=== PATIENT | female | born 1950 | race Caucasian/White ===

== ENCOUNTER 2016-09-20 01:42 | Emergency (ER) | payer BC ==
[2016-09-20] MEDS ORDERED: HYDROmorphone 2 MG/ML Syringe SUBCUT ONE (01:59)
--- NOTE | 2016-09-20 02:14 | EDM.PDOC ---
ED HPI GENERAL MEDICAL PROBLEM - General Chief Complaint: General Stated Complaint: MIGRAINE Time Seen by Provider: 09/20/16 01:45 Source of Information: Reports: Patient History Limitations: Reports: No Limitations - History of Present Illness INITIAL COMMENTS - FREE TEXT/NARRATIVE: Pt claims that she has atypical migraine and tonight around 6 Pm she started having left sied headache with tunnel vision and nausea. The headache has got worse and throbbing type. Pt claims that she uses fentanyl patch 50mcg every 3 days to prevent the headache. She claims when gets it from Dr. Dobbs. She has runout of the patch for 1 wk now, as she has been using more frequently as the patches separate of her skin as she has been sweating due to hot weather. She says she was waiting to see Dr. Dobbs today, but then she had an attack of migraine today. Her blood pressure does go up when she has migraine headache. It has been as high as 210/110mmhg in the past today, it was 186/ 109mmhg. + photophobia and phonophobia. No weakness in the extremities, vomiting, vertigo, chest pain or shortness of breath. Onset: Today Onset Date: 09/19/16 Onset Time: 18:00 Location: Reports: Head Quality: Reports: Ache Severity: Severe Improves with: Reports: Medication, Rest Worsens with: Reports: None Associated Symptoms: Reports: Headaches. Denies: Confusion, Cough, Diaphoresis , Fever/Chills, Nausea/Vomiting, Rash, Seizure, Shortness of Breath, Syncope, Weakness - Related Data Allergies Allergy/AdvReac Type Severity Reaction Status Date / Time Xbjplhs-[id number]-Cqe Reductase AdvReac Muscle Verified 09/20/16 01:59 Inhibitor Aches Home Meds: Home Meds Cetirizine [ZyrTEC] 1 tab OP DAILY 10/26/15 [History] Cholecalciferol (Vitamin D3) [Vitamin D] 1 tab PO DAILY 10/26/15 [History] DULoxetine [Cymbalta] 2 cap PO DAILY 10/26/15 [History] Diclofenac Sodium [Voltaren 1% Gel] 2 applic TOP BID 10/26/15 [History] Estradiol 1 tab PO DAILY 10/26/15 [History] Levothyroxine Sodium [Synthroid] 150 mcg PO DAILY 10/26/15 [History] Metoprolol Succinate 1 tab PO DAILY 10/26/15 [History] Multivit-Min/FA/Lycopene/Lut [Senior Tabs] 1 tab PO DAILY 10/26/15 [History] [place]-3/DHA/Epa/Fish Oil [Fish Oil 1,000 mg Softgel] 1 cap PO DAILY 10/26/15 [ History] Valsartan [Diovan] 1.5 tab PO DAILY 10/26/15 [History] Vitamin B Complex 1 tab PO DAILY 10/26/15 [History] fentaNYL [Fentanyl] 50 mcg TRDERM ASDIRECTED 10/26/15 [History] traMADol [Ultram] 150 mg PO TID PRN 10/26/15 [History] Fenofibrate Nanocrystallized [Tricor] 145 mg PO DAILY 09/20/16 [History] Indapamide [Indapamide] 1 tab PO DAILY 09/20/16 [History] Past Medical History HEENT History: Reports: Other (See Below) Other HEENT History: pt currently is experiencing some difficulty swallowing and hoarse voice due to thyroid surgery 2 weeks ago Cardiovascular History: Reports: Hypertension Gastrointestinal History: Reports: Gastritis, GERD 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 (See Below) Other OB/BYN History: ovarian cyst rupture Musculoskeletal History: Reports: Fibromyalgia Neurological History: Reports: Migraines Psychiatric History: Reports: Depression Endocrine/Metabolic History: Reports: Hypothyroidism - Infectious Disease History Infectious Disease History: Reports: Other (See Below) Other Infectious Disease History: lyme's disease - Past Surgical History HEENT Surgical History: Reports: Other (See Below) Female Surgical History: Reports: Hysterectomy, Lithotripsy/ESWL, Other (See Below) Social & Family History - Family History Family Medical History: Noncontributory - Tobacco Use Smoking Status *Q: Never Smoker Second Hand Smoke Exposure: No - Caffeine Use Caffeine Use: Reports: None - Recreational Drug Use Recreational Drug Use: No ED ROS GENERAL - Review of Systems Review Of Systems: See Below Constitutional: Denies: Fever, Chills HEENT: Denies: Nose Pain, Rhinitis, Throat Pain, Throat Swelling Respiratory: Denies: Cough, Sputum Cardiovascular: Denies: Chest Pain, Lightheadedness GI/Abdominal: Reports: Nausea. Denies: Abdominal Pain, Vomiting : Denies: Dysuria, Flank Pain Musculoskeletal: Denies: Joint Pain, Joint Swelling Skin: Denies: Pruritis, Rash Neurological: Reports: Headache. Denies: Confusion, Dizziness, Numbness, Paresthesia, Seizure, Syncope, Tingling, Tremors, Gait Disturbance Psychiatric: Denies: Agitation, Anxiety ED EXAM, GENERAL - Physical Exam Exam: See Below Exam Limited By: No Limitations General Appearance: Alert, WD/WN, Mild Distress, Other (sitting in darkroom) Eye Exam: Bilateral Eye: EOMI, PERRL Ears: Normal External Exam, Normal Canal, Hearing Grossly Normal, Normal TMs Ear Exam: Bilateral Ear: Auricle Normal, Canal Normal, TM normal Nose: Normal Inspection, Normal Mucosa, No Blood Throat/Mouth: Normal Inspection, Normal Lips, Normal Teeth, Normal Gums, Normal Oropharynx, Normal Voice, No Airway Compromise Head: Atraumatic, Normocephalic Neck: Normal Inspection, Supple, Non-Tender, Full Range of Motion Respiratory/Chest: No Respiratory Distress, Lungs Clear, Normal Breath Sounds, No Accessory Muscle Use, Chest Non-Tender Cardiovascular: Normal Peripheral Pulses, Regular Rate, Rhythm, No Edema, No Gallop, No JVD, No Murmur, No Rub Extremities: Normal Inspection, Normal Range of Motion, Non-Tender, Normal Capillary Refill, No Pedal Edema Neurological: Alert, Oriented, CN II-XII Intact, Normal Cognition, Normal Gait, Normal Reflexes, No Motor/Sensory Deficits Psychiatric: Normal Affect, Normal Mood Course - Vital Signs Text/Narrative:: Pt did receive dilaudid 1mg s/c. Also we did apply fentanyl patch 50mcg today. After about 15 minutes her headache improved and she was able to open her eye to light. also her bp started to decrease. Her BP now is 163/93mmhg. I have advised patient to go home and rest. Avoid loud noises and use of electronic device like television or cell phone. Followup with Dr. Dobbs today for refill of her meds. Departure - Departure Time of Disposition: 02:20 Disposition: Home, Self-Care 01 Condition: Fair Clinical Impression: Migraine - Discharge Information Forms: ED Department Discharge Additional Instructions: Drink plenty of fluids and get plenty of rest. Activity as tolerated. Limit exposure to electronic devices and lights to help decrease pain experienced with migraine present. Fill regular prescription for Duragesic patches this week. Follow up with regular provider. Call with any questions. - Problem List & Annotations (1) Migraine SNOMED Code(s): 56381921 Code(s): G43.909 - MIGRAINE, UNSP, NOT INTRACTABLE, WITHOUT STATUS MIGRAINOSUS Status: Acute - Problem List Review Problem List Initiated/Reviewed/Updated: Yes - Assessment/Plan Assessment:: Migraine Headache Plan: Pt did receive dilaudid 1mg s/c. Also we did apply fentanyl patch 50mcg today. After about 15 minutes her headache improved and she was able to open her eye to light. also her bp started to decrease. Her BP now is 163/93mmhg. I have advised patient to go home and rest. Avoid loud noises and use of electronic device like television or cell phone. Followup with Dr. Dobbs today for refill of her meds
[2016-09-20] MEDS ORDERED: fentaNYL 50 MCG/HR Transdermal Patch TRDERM SCH (02:15)
[2016-09-20 03:18] VITALS: BP 163/93
== END 2016-09-20 02:15 | disposition home or self-care (01) ==
LOC: LB.ED 01:42
DX: G43.909 Migraine, unspecified, not intractable, without status migrainosus (principal); I10 Essential (primary) hypertension; K21.9 Gastro-esophageal reflux disease without esophagitis; E03.9 Hypothyroidism, unspecified; F32.9 Major depressive disorder, single episode, unspecified; Z88.8 Allergy status to other drugs, medicaments and biological substances; Z79.899 Other long term (current) drug therapy; Z90.710 Acquired absence of both cervix and uterus
CPT/HCPCS: 96372; 99283; A9270; J1170